=== PATIENT | female | born 1985 ===

== ENCOUNTER 2017-09-21 07:14 | Day surgery (SDC) | payer OTHER ==
[2017-09-16 08:37] VITALS: BMI 24.3
[2017-09-21] MEDS ORDERED: Propofol 10 mg/ml Inj (20 ML) ONE (08:13)
[2017-09-21] MEDS ORDERED: Midazolam 2 MG/2 ML VIAL ONE (08:56)
[2017-09-21] MEDS ORDERED: HYDROmorphone 0.5 mg/0.5 ml ISec IVP PRN (09:51)
[2017-09-21 11:19] VITALS: BP 114/74; PULSE 74; RESP 18; TEMP 97; O2SAT 100
--- NOTE | 2017-09-21 11:54 | PCM.SURG1 ---
Surgeon's Initial Post Op Note - Surgeon's Notes Surgeon: Dr. Dominga Trujillo [employer] Adjuster: none Type of Anesthesia: General Endo Pre-Operative Diagnosis: chronic pelvic pain, menorrhagia, endometrial polyp Operative Findings: endometrial polyp, uterus approx 10 week sized Post-Operative Diagnosis: same Operation Performed: Hysteroscopy D&C, polypectomy with MyoSure Specimen/Specimens Removed: endometrial polyp and endometrial curettings Estimated Blood Loss: EBL {In ML}: 10 Blood Products Given: N/A Drains Used: No Drains Post-Op Condition: Good Date of Surgery/Procedure: 09/21/17 Time of Surgery/Procedure: 09:00
--- NOTE | 2017-09-21 20:49 | OP ---
Copied To: Dominga Trujillo MD Attending MD: Dominga Trujillo MD PROCEDURE DATE: 09/21/2017 SURGEON: Dominga Live MD. ARTS AND SCIENCES DEAN: There were no retail administrative assistant. SURGERY PERFORMED: Hysteroscopy, dilation and curettage, and polypectomy with MyoSure. PREOPERATIVE DIAGNOSES: Chronic pelvic pain, menorrhagia, endometrial polyp. POSTOPERATIVE DIAGNOSES: Chronic pelvic pain, menorrhagia, endometrial polyp. COMPLICATIONS: There were no complications. ESTIMATED BLOOD LOSS: 10 mL. ANESTHESIA USED: LMA. INTRAOPERATIVE FINDINGS: Anteverted uterus approximately 10 weeks size and endometrial polyp. SPECIMENS REMOVED: Endometrial polyp as well as endometrial curettings. The patient was then taken back to the recovery room in stable condition. DESCRIPTION OF PROCEDURE: After all relevant documentation was reviewed and signed by , the patient was taken back to the OR. She was prepped and draped in the usual sterile fashion after being placed in the lithotomy position. After bimanual examination and draining the bladder, a weighted speculum was then introduced and excellent visualization of the cervix was seen with the use of a right angle retractor. The posterior lip of the cervix was then grasped with a single tooth tenaculum and then the cervix was gently dilated. Once adequate dilation was obtained, a hysteroscope was then placed and the endometrial polyp was observed. With the use of MyoSure, the endometrial polyp was removed. The hysteroscope was then removed and the gentle sharp curettage was then performed. The single tooth tenaculum was then removed and excellent hemostasis was obtained with the use of Monsel. All instruments were removed and the patient was then awoken from general anesthesia and taken back to the recovery room in stable condition. Once again, all lap counts and instrument counts were correct. Dominga Trujillo MD
== END 2017-09-21 11:38 | disposition home or self-care (01) ==
LOC: C.SDS 07:14
PROVIDERS: ATTEND Obstetrics & Gynecology
DX: N84.0 Polyp of corpus uteri (principal); N92.0 Excessive and frequent menstruation with regular cycle; N94.6 Dysmenorrhea, unspecified; G89.29 Other chronic pain
CPT/HCPCS: 58558; 88305; J1100; J2001; J2250; J2704; J2765; J3010